=== PATIENT | male | born 1995 | race Caucasian/White ===

== ENCOUNTER 2017-02-06 10:10 | Emergency (ER) | payer OTHER ==
[~2017-02-06] VITALS: Ht 182.9 cm; Wt 75.9 kg
[2017-02-06] MEDS ORDERED: IBUPROFEN 200 MG TABLET ONE (11:23)
[2017-02-06] MEDS ORDERED: IBUPROFEN 200 MG TABLET PO ONE (11:30)
[2017-02-06 12:25] VITALS: BP 138/86
[2017-02-06 12:32] LABS: RAPID INFLUENZA A Negative (Negative); RAPID INFLUENZA B Negative (Negative)
== END 2017-02-06 13:05 | disposition home or self-care (01) ==
LOC: ED 12:16
DX: B34.9 Viral infection, unspecified (principal); R50.81 Fever presenting with conditions classified elsewhere
CPT/HCPCS: 87400